=== PATIENT | male | born 1985 | race Hispanic/Latino ===

== ENCOUNTER 2018-10-12 10:34 | Emergency (ER) | payer BC ==
--- NOTE | 2018-10-12 12:24 | ER ---
Nurse's Notes [facility] Name: Davida Valentine Age: 33 yrs Sex: Male : 1985 Arrival Date: 10/12/2018 Time: 10:36 Bed 24 Private MD: Diagnosis: Streptococcal pharyngitis Presentation: 10/12 10:38 Presenting complaint: Patient states: for one week I have had sore throat, its getting la1 worse. Transition of care: patient was not received from another setting of care. Onset of symptoms was October 12, 2018. Risk Assessment: Do you want to hurt yourself or someone else? Patient reports no desire to harm self or others. Initial Sepsis Screen: Does the patient meet any 2 criteria? No. Patient's initial sepsis screen is negative. Does the patient have a suspected source of infection? No. Patient's initial sepsis screen is negative. Care prior to arrival: None. 10:38 Method Of Arrival: Ambulatory la1 10:38 Acuity: ZARI 4 la1 Triage Assessment: 12:00 General: Appears in no apparent distress. iw 12:00 General: Behavior is calm. iw Historical: - Allergies: 10:39 No Known Allergies; la1 - PMHx: 10:39 None; la1 - Immunization history:: Adult Immunizations up to date. - Social history:: Smoking status: Patient/guardian denies using tobacco. - Ebola Screening: : No symptoms or risks identified at this time. Screenin:35 Abuse screen: Denies threats or abuse. Denies injuries from another. Nutritional iw screening: No deficits noted. Tuberculosis screening: No symptoms or risk factors identified. Fall Risk None identified. Assessment: 11:35 General: Appears Behavior is calm, cooperative. Pain: Complains of pain in throat. iw Neuro: Level of Consciousness is awake, alert, obeys commands, Oriented to person, place, Moves all extremities. Cardiovascular: Patient's skin is warm and dry. Respiratory: Respiratory effort is even, unlabored. GI: Abdomen is non-distended. Derm: Skin is intact, is healthy with good turgor. Musculoskeletal: Range of motion: intact in all extremities. Vital Signs: 10:39 BP 134 / 74; Pulse 88; Resp 18; Temp 97.5; Pulse Ox 98% on R/A; Weight 102.06 kg; la1 Height 6 ft. 1 in. (185.42 cm); 10:39 Body Mass Index 29.68 (102.06 kg, 185.42 cm) la1 ED Course: 10:36 Patient arrived in ED. rg4 10:39 Triage completed. la1 10:39 Arm band placed on left wrist. la1 11:18 Shannon Rooney, RN is Primary Nurse. iw 11:24 Jens Castañeda PA is PHCP. cp 11:24 Naga Benson MD is Attending Physician. cp 11:35 Patient has correct armband on for positive identification. iw 12:35 No provider procedures requiring assistance completed. Patient did not have IV access iw during this emergency room visit. Administered Medications: No medications were administered Outcome: 12:23 Discharge ordered by MD. cp 12:35 Discharged to home ambulatory. iw 12:35 Condition: good 12:35 Discharge instructions given to patient, Instructed on discharge instructions, follow up and referral plans. medication usage, Demonstrated understanding of instructions, follow-up care, medications, Prescriptions given X 2. 12:36 Patient left the ED. iw Signatures: Shannon Rooney, RN RN iw Brock Felder RN RN la1 Jens Castañeda PA PA cp Garcia, Rubi rg4
--- NOTE | 2018-10-12 12:24 | EDPHYS ---
Physician Documentation [facility] Name: Davida Valentine Age: 33 yrs Sex: Male : 1985 Arrival Date: 10/12/2018 Time: 10:36 Bed 24 Private MD: ED Physician Naga Benson HPI: 10/12 11:34 This 33 yrs old Male presents to ER via Ambulatory with complaints of Body Aches, Cough.cp 11:35 The patient presents with sore throat. cp 11:35 Onset: The symptoms/episode began/occurred 1 week(s) ago. Severity of symptoms: in the emergency department the symptoms are unchanged, despite home interventions. Associated signs and symptoms: Pertinent negatives cough, diarrhea, fever, headache, vomiting. Historical: - Allergies: 10:39 No Known Allergies; la1 - PMHx: 10:39 None; la1 - Immunization history:: Adult Immunizations up to date. - Social history:: Smoking status: Patient/guardian denies using tobacco. - Ebola Screening: : No symptoms or risks identified at this time. ROS: 11:40 Eyes: Negative for injury, pain, redness, and discharge. cp 11:40 Constitutional: Positive for body aches, Negative for fever, poor PO intake. 11:40 ENT: Positive for sore throat, Negative for drainage from ear(s), ear pain, sinus pain, difficulty swallowing, difficulty handling secretions. 11:40 Neck: Negative for pain with movement, pain at rest, stiffness. 11:40 Cardiovascular: Negative for chest pain. 11:40 Respiratory: Negative for cough, wheezing. 11:40 Skin: Negative for cellulitis, rash. 11:40 Neuro: Negative for altered mental status, headache. 11:40 All other systems are negative. Exam: 11:50 Constitutional: The patient appears in no acute distress, alert, awake, non-toxic, well cp developed, well nourished. 11:50 Head/Face: Normocephalic, atraumatic. cp 11:50 Eyes: Periorbital structures: appear normal, Pupils: equal, round, and reactive to light and accomodation, Extraocular movements: intact throughout, Conjunctiva: normal, no exudate, no injection, Sclera: no appreciated abnormality, Lids and lashes: appear normal, bilaterally. 11:50 ENT: External ear(s): are unremarkable, Ear canal(s): are normal, clear, TM's: bulging, is not appreciated, bilaterally, dullness, bilaterally, erythema, is not appreciated, bilaterally, Nose: is normal, Mouth: Lips: moist, Oral mucosa: pink and intact, moist, Posterior pharynx: Airway: no evidence of obstruction, patent, Tonsils: bilaterally enlarged, with erythema, no exudate, Uvula: midline, erythema, that is moderate, exudate, is not appreciated, Voice: is normal. 11:50 Neck: ROM/movement: is normal, is supple, no range of motions limitations, no meningismus, no nuchal rigidity. 11:50 Chest/axilla: Inspection: normal, Palpation: is normal, no crepitus, no tenderness. 11:50 Cardiovascular: Rate: tachycardic, Rhythm: regular. 11:50 Respiratory: the patient does not display signs of respiratory distress, Respirations: normal, no use of accessory muscles, no retractions, no splinting, no tachypnea, Breath sounds: are clear throughout, no decreased breath sounds, no stridor, no wheezing. 11:50 Skin: cellulitis, is not appreciated, no rash present. Vital Signs: 10:39 BP 134 / 74; Pulse 88; Resp 18; Temp 97.5; Pulse Ox 98% on R/A; Weight 102.06 kg; la1 Height 6 ft. 1 in. (185.42 cm); 10:39 Body Mass Index 29.68 (102.06 kg, 185.42 cm) la1 MDM: 11:24 Patient medically screened. cp 11:40 Differential diagnosis: bronchitis, pneumonia meningitis, influenza, strep throat. cp 12:22 Data reviewed: vital signs, nurses notes, lab test result(s), and as a result, I will cp discharge patient. 12:22 Counseling: I had a detailed discussion with the patient and/or guardian regarding: the cp historical points, exam findings, and any diagnostic results supporting the discharge/admit diagnosis, lab results, to return to the emergency department if symptoms worsen or persist or if there are any questions or concerns that arise at home. 10/12 10:40 Order name: Strep; Complete Time: 11:33 la1 10/12 11:34 Interpretation: Abnormal: GP A STREP SC \T\nbsp; GROUP A STREP SCREEN-- \T\nbsp; \T\nbsp; cp POSITIVE. 10/12 10:40 Order name: Flu; Complete Time: 11:33 la1 Administered Medications: No medications were administered Disposition: 17:50 Co-signature as Attending Physician, Naga Benson MD. Disposition: 10/12/18 12:23 Discharged to Home. Impression: Streptococcal pharyngitis. - Condition is Stable. - Discharge Instructions: Strep Throat. - Prescriptions for Amoxicillin 875 mg Oral Tablet - take 1 tablet by ORAL route every 12 hours for 10 days; 20 tablet. Ibuprofen 800 mg Oral Tablet - take 1 tablet by ORAL route every 8 hours As needed take with food; 30 tablet. - Work release form, Medication Reconciliation Form, Thank You Letter, Antibiotic Education, Prescription Opioid Use form. - Follow up: Private Physician; When: 2 - 3 days; Reason: Worsening of condition. - Problem is new. - Symptoms are unchanged. Signatures: Dispatcher [employer] EDShannon Weir RN RN Brock Felder RN RN la1 Jens Castañeda PA PA cp Starr, Gregory, MD MD Corrections: (The following items were deleted from the chart) 12:36 12:23 10/12/2018 12:23 Discharged to Home. Impression: Streptococcal pharyngitis. iw Condition is Stable. Forms are Medication Reconciliation Form, Thank You Letter, Antibiotic Education, Prescription Opioid Use. Follow up: Private Physician; When: 2 - 3 days; Reason: Worsening of condition. Problem is new. Symptoms are unchanged. cp
== END 2018-10-12 12:36 | disposition home or self-care (01) ==
LOC: ER 10:34
DX: J02.0 Streptococcal pharyngitis (principal)
CPT/HCPCS: 87081; 87804; 99282